=== PATIENT | female | born 1965 | race Two or more races ===

== ENCOUNTER 2020-08-25 16:01 | Emergency (ER) | payer OTHER ==
[~2020-08-25] VITALS: Ht 157.5 cm; Wt 74.8 kg
== END 2020-08-25 19:57 | disposition home or self-care (01) ==
LOC: ER 16:01
DX: E11.43 Type 2 diabetes mellitus with diabetic autonomic (poly)neuropathy (principal); K31.84 Gastroparesis

== ENCOUNTER 2021-10-23 20:35 | Emergency (ER) | payer OTHER ==
[~2021-10-23] VITALS: Ht 162.6 cm; Wt 60.8 kg
[2021-10-23] MEDS ORDERED: GLUMETZA500 MG PO (20:57)
[2021-10-23] MEDS ORDERED: TOPAMAX25 M1 PO (20:57)
== END 2021-10-23 23:37 | disposition home or self-care (01) ==
LOC: ER 20:35
DX: G43.909 Migraine, unspecified, not intractable, without status migrainosus (principal); Z03.818 Encounter for observation for suspected exposure to other biological agents ruled out; R11.11 Vomiting without nausea